=== PATIENT | female | born 2000 | race Two or more races ===

== ENCOUNTER 2025-01-30 19:14 | Observation (INO) | payer MEDICAID, SELFPAY ==
[2025-01-30 19:32] VITALS: BP 105/59; PULSE 96; RESP 18; RESP 99; TEMP 36.8
[2025-01-30 19:33] VITALS: BP 105/59; PULSE 96
[2025-01-30 20:03] VITALS: BP 98/56; PULSE 86
[2025-01-30 20:33] VITALS: BP 98/60; PULSE 87
[2025-01-30 21:04] VITALS: BP 102/59; PULSE 81
[2025-01-30 21:33] VITALS: BMI 30.9
== END 2025-01-30 21:35 | disposition home or self-care (01) ==
PROVIDERS: Admitting Provider Specialist; Visit Provider Specialist
DX: O46.93 Antepartum hemorrhage, unspecified, third trimester (principal); Z3A.29 29 weeks gestation of pregnancy
CPT/HCPCS: 59025; 59899